=== PATIENT | male | born 1930 | race African-American/Black ===

== ENCOUNTER 2018-11-14 19:55 | Inpatient (IN) | payer MEDICARE, MEDICAID ==
[~2018-11-14] VITALS: Ht 167.6 cm; Wt 71.7 kg
[2018-11-14 19:30] VITALS: BP 122/76
[~2018-11-14 19:55] MED LIST: ACET-2178 MT; AMLO5TAB88 PO; ASPI-1393 PO; ATOR20TA PO; BRIM5DRO6 EACHEYE; CLOP75TA33; COR3 PO; FINA5TAB11 PO; GABA-531 PO; HYDR-4001 PO; LATA2.5D2 EACHEYE; LIDO700A30 TP; LOSA100T32 PO; MEMA21CA; RIVA20TA MT; SIMV40TA5; VALS160T28
[2018-11-14 20:00] VITALS: BP_SYST 118; BP_SYST 122; BP_DIAS 76; BP_DIAS 82
[2018-11-14] MEDS ORDERED: TRAMADOL 50MG TABLET PO PRN (21:30)
[2018-11-14] MEDS ORDERED: ACETAMINOPHEN 325MG TABLET PO PRN (21:30)
[2018-11-14] MEDS ORDERED: LEVOFLOXACIN 500MG PREMIX 100 ML IV SCH (23:00)
[2018-11-14] MEDS ORDERED: SODIUM CHLORIDE 0.9% 1,000 ML IV SCH (23:00)
[2018-11-14] MEDS ORDERED: LEVOFLOXACIN 250MG PREMIX 50 ML IV SCH (23:30)
[2018-11-15] VITALS (8 sets, daily range): BP systolic 106–154; BP diastolic 64–76
[2018-11-15 00:55] LABS: CLARITY URINE CLEAR (CLEAR); COLOR URINE YELLOW (YELLOW); KETONES URINE NEGATIVE (NEGATIVE); LEUKOCYTE ESTERASE URINE NEGATIVE (NEGATIVE); NITRITE URINE NEGATIVE (NEGATIVE); OCCULT BLOOD URINE TRACE (NEGATIVE); PH URINE 5.5 (4.5-8.0); PROTEIN URINE NEGATIVE (NEGATIVE); SPECIFIC GRAVITY URINE 1.019 (1.005-1.030); UROBILINOGEN URINE 0.2 E.U./dL (0.2-1.0)
[2018-11-15 06:36] LABS: BASOPHILS % 0.4 % (0.0-2.0); EOSINOPHILS % 3.8 % (0.0-5.0); HEMATOCRIT. 42.3 % (42.0-52.0); HEMOGLOBIN. 14.5 g/dL (14.0-18.0); LYMPHOCYTES % 49.7 % (20.0-50.0); MEAN CORPUSCULAR HEMOGLOBIN 31.8 pg (28.0-32.0); MEAN CORPUSCULAR VOLUME 92.6 fL (80.0-94.0); MEAN PLATELET VOLUME 8.1 fl (7.4-10.4); MONOCYTES % 9.9 % (2.0-8.0); NEUTROPHILS % 36.2 % (40.0-76.0); PLATELET 183 x1000/uL (130-400); RED BLOOD CELL COUNT 4.57 mill/uL (4.7-6.1); RED CELL DISTRIBUTION WIDTH 14.5 % (11.6-14.6)
[2018-11-15 06:42] LABS: CHLORIDE 117 mEq/L (98-107)
[2018-11-15] MEDS: DEXTROSE 5% WATER 1,000 ML IV SCH ×2 (08:57→22:38)
[2018-11-15] MEDS: FINASTERIDE 5MG TABLET PO SCH (10:53)
[2018-11-15] MEDS: AMLODIPINE 5MG TABLET PO SCH (10:53)
[2018-11-15] MEDS: CARVEDILOL 3.125 MG TABLET PO SCH ×2 (10:53→21:00)
[2018-11-15] MEDS: LOSARTAN POTASSIUM 100 MG TABLET PO SCH (10:53)
[2018-11-15] MEDS ORDERED: CLONIDINE 0.1MG TABLET PO PRN (13:45)
[2018-11-15] MEDS: GABAPENTIN 300MG CAPSULE PO SCH ×2 (13:57→21:05)
[2018-11-15] MEDS: RIVAROXABAN 20 MG TABLET PO SCH (16:20)
[2018-11-15 16:40] LABS: BASOPHILS % 0.3 % (0.0-2.0); EOSINOPHILS % 3.8 % (0.0-5.0); HEMATOCRIT. 45.6 % (42.0-52.0); HEMOGLOBIN. 15.6 g/dL (14.0-18.0); LYMPHOCYTES % 46.2 % (20.0-50.0); MEAN CORPUSCULAR HEMOGLOBIN 31.8 pg (28.0-32.0); MEAN CORPUSCULAR VOLUME 92.7 fL (80.0-94.0); MEAN PLATELET VOLUME 8.3 fl (7.4-10.4); MONOCYTES % 11.6 % (2.0-8.0); NEUTROPHILS % 38.1 % (40.0-76.0); PLATELET 177 x1000/uL (130-400); RED BLOOD CELL COUNT 4.91 mill/uL (4.7-6.1); RED CELL DISTRIBUTION WIDTH 14.7 % (11.6-14.6)
[2018-11-15 16:58] LABS: CHLORIDE 115 mEq/L (98-107)
[2018-11-15] MEDS: LORAZEPAM 2MG/ML CPJ IV PRN (18:27)
[2018-11-15] MEDS: ATORVASTATIN CALCIUM 20MG TABLET PO SCH (20:58)
[2018-11-15] MEDS: LEVOFLOXACIN 250MG TABLET PO SCH (20:58)
[2018-11-15] MEDS: LATANOPROST 0.005% OPHTH DROPS 2.5ML EACHEYE SCH (21:05)
[2018-11-16] VITALS (10 sets, daily range): BP systolic 126–168; BP diastolic 66–97
[2018-11-16] MEDS: LORAZEPAM 2MG/ML CPJ IV PRN ×2 (03:54→23:43)
[2018-11-16] MEDS: GABAPENTIN 300MG CAPSULE PO SCH ×3 (06:27→21:13)
[2018-11-16 06:58] LABS: CHLORIDE 113 mEq/L (98-107)
[2018-11-16 07:19] LABS: BASOPHILS % 0.3 % (0.0-2.0); EOSINOPHILS % 4.1 % (0.0-5.0); HEMATOCRIT. 44.6 % (42.0-52.0); HEMOGLOBIN. 15.3 g/dL (14.0-18.0); LYMPHOCYTES % 39.8 % (20.0-50.0); MEAN CORPUSCULAR HEMOGLOBIN 31.8 pg (28.0-32.0); MEAN CORPUSCULAR VOLUME 92.8 fL (80.0-94.0); MONOCYTES % 10.7 % (2.0-8.0); NEUTROPHILS % 45.1 % (40.0-76.0); PLATELET 179 x1000/uL (130-400); RED CELL DISTRIBUTION WIDTH 14.7 % (11.6-14.6)
[2018-11-16] MEDS: CARVEDILOL 3.125 MG TABLET PO SCH (08:53)
[2018-11-16] MEDS: LOSARTAN POTASSIUM 100 MG TABLET PO SCH (08:56)
[2018-11-16] MEDS: AMLODIPINE 5MG TABLET PO SCH ×2 (08:57→21:11)
[2018-11-16] MEDS: FINASTERIDE 5MG TABLET PO SCH (09:00)
[2018-11-16] MEDS: DEXTROSE 5% WATER 1,000 ML IV SCH (12:09)
[2018-11-16 12:24] LABS: T4 FREE 1.15 ng/dL (0.76-1.46)
[2018-11-16] MEDS ORDERED: LOSARTAN POTASSIUM 100 MG TABLET PO SCH (17:30)
[2018-11-16] MEDS ORDERED: HYDRALAZINE 20MG/ML VIAL IV PRN (17:30)
[2018-11-16] MEDS: RIVAROXABAN 20 MG TABLET PO SCH (17:36)
[2018-11-16] MEDS ORDERED: LOSARTAN POTASSIUM 50 MG TABLET PO SCH (21:00)
[2018-11-16] MEDS: ATORVASTATIN CALCIUM 20MG TABLET PO SCH (21:11)
[2018-11-16] MEDS: LEVOFLOXACIN 250MG TABLET PO SCH (21:11)
[2018-11-16] MEDS: LATANOPROST 0.005% OPHTH DROPS 2.5ML EACHEYE SCH (21:46)
[2018-11-17] VITALS (12 sets, daily range): BP systolic 100–164; BP diastolic 27–110
[2018-11-17] MEDS: DEXTROSE 5% WATER 1,000 ML IV SCH ×2 (00:18→14:52)
[2018-11-17] MEDS: IPRATROPIUM/ALBUTEROL 0.5-3(2.5)MG/3ML NEB HHN SCH ×3 (01:46→20:15)
[2018-11-17] MEDS: GABAPENTIN 300MG CAPSULE PO SCH ×3 (05:44→21:22)
[2018-11-17 06:09] LABS: BASOPHILS % 0.2 % (0.0-2.0); EOSINOPHILS % 3.4 % (0.0-5.0); HEMATOCRIT. 47.5 % (42.0-52.0); HEMOGLOBIN. 16.1 g/dL (14.0-18.0); LYMPHOCYTES % 41.1 % (20.0-50.0); MEAN CORPUSCULAR HEMOGLOBIN 31.5 pg (28.0-32.0); MEAN PLATELET VOLUME 7.6 fl (7.4-10.4); MONOCYTES % 11.7 % (2.0-8.0); NEUTROPHILS % 43.6 % (40.0-76.0); PLATELET 192 x1000/uL (130-400); RED CELL DISTRIBUTION WIDTH 14.6 % (11.6-14.6)
[2018-11-17 06:15] LABS: CHLORIDE 114 mEq/L (98-107)
[2018-11-17] MEDS: LOSARTAN POTASSIUM 50 MG TABLET PO SCH ×2 (09:05→21:00)
[2018-11-17] MEDS: FINASTERIDE 5MG TABLET PO SCH (09:05)
[2018-11-17] MEDS: AMLODIPINE 5MG TABLET PO SCH ×2 (09:06→21:00)
[2018-11-17] MEDS ORDERED: LEVOFLOXACIN 500MG PREMIX 100 ML IV SCH (10:30)
[2018-11-17] MEDS: RIVAROXABAN 20 MG TABLET PO SCH (17:38)
[2018-11-17] MEDS: CARVEDILOL 3.125 MG TABLET PO SCH (21:00)
[2018-11-17] MEDS: ATORVASTATIN CALCIUM 20MG TABLET PO SCH (21:22)
[2018-11-17] MEDS: LEVOFLOXACIN 250MG TABLET PO SCH (21:22)
[2018-11-17] MEDS: LATANOPROST 0.005% OPHTH DROPS 2.5ML EACHEYE SCH (21:22)
[2018-11-18] VITALS (12 sets, daily range): BP systolic 122–174; BP diastolic 58–94
[2018-11-18] MEDS: GABAPENTIN 300MG CAPSULE PO SCH ×3 (05:58→20:42)
[2018-11-18] MEDS: IPRATROPIUM/ALBUTEROL 0.5-3(2.5)MG/3ML NEB HHN SCH ×2 (08:13→20:39)
[2018-11-18] MEDS: CARVEDILOL 3.125 MG TABLET PO SCH ×2 (10:24→20:58)
[2018-11-18] MEDS: FINASTERIDE 5MG TABLET PO SCH (10:24)
[2018-11-18] MEDS: AMLODIPINE 5MG TABLET PO SCH ×2 (10:25→20:59)
[2018-11-18] MEDS: LOSARTAN POTASSIUM 50 MG TABLET PO SCH ×2 (10:25→20:59)
[2018-11-18] MEDS: RIVAROXABAN 20 MG TABLET PO SCH (16:09)
[2018-11-18] MEDS: LEVOFLOXACIN 250MG TABLET PO SCH (20:42)
[2018-11-18] MEDS: ATORVASTATIN CALCIUM 20MG TABLET PO SCH (20:42)
[2018-11-18] MEDS: LATANOPROST 0.005% OPHTH DROPS 2.5ML EACHEYE SCH (21:26)
== END 2018-11-18 22:37 | DRG 689 ==
LOC: 6EST 19:55 → 5EST 11-16 09:33
PROVIDERS: ADMIT Hospitalist; ATTEND Hospitalist
PROC: 4B02XSZ Measurement of Cardiac Pacemaker, External Approach (ICD-10-PCS; principal; 2018-11-16)
DX: N39.0 Urinary tract infection, site not specified (principal); G93.41 Metabolic encephalopathy; E87.0 Hyperosmolality and hypernatremia; E44.1 Mild protein-calorie malnutrition; D68.59 Other primary thrombophilia; F02.80 Dementia in other diseases classified elsewhere, unspecified severity, without behavioral disturbance, psychotic disturbance, mood disturbance, and anxiety; G30.9 Alzheimer's disease, unspecified; N40.0 Benign prostatic hyperplasia without lower urinary tract symptoms; H40.9 Unspecified glaucoma; I48.91 Unspecified atrial fibrillation; B96.20 Unspecified Escherichia coli [E. coli] as the cause of diseases classified elsewhere; I49.5 Sick sinus syndrome; E78.5 Hyperlipidemia, unspecified; I10 Essential (primary) hypertension; Z86.73 Personal history of transient ischemic attack (TIA), and cerebral infarction without residual deficits; Z95.0 Presence of cardiac pacemaker; Z68.25 Body mass index [BMI] 25.0-25.9, adult; Z79.899 Other long term (current) drug therapy; Z79.82 Long term (current) use of aspirin
CPT/HCPCS: 36415; 71045; 80048; 81003; 83735; 84132; 84439; 84443; 87077; 87186; 93005; 93306; 94640; C1893; J0360; J1956; J2060; J7030; J7070; J7620

== ENCOUNTER 2019-08-06 13:04 | Inpatient (IN) | payer MEDICARE, MEDICAID ==
[~2019-08-06] VITALS: Ht 167.6 cm; Wt 74.6 kg
[~2019-08-06 13:04] MED LIST changes: -ACET-2178 MT; -ASPI-1393 PO; +ASPI-1497 PO; +SIMV-46; -SIMV40TA5; +TOPUD MT
[2019-08-06] MEDS ORDERED: ACETAMINOPHEN 325MG TABLET PO STA (13:18)
[2019-08-06] MEDS ORDERED: CEFTRIAXONE 1 G PREMIX 50 ML IV STA (15:02)
[2019-08-06] MEDS ORDERED: AZITHROMYCIN 500 MG in DEXT 5% WATER 250 ML IV STA (15:02)
[2019-08-06] MEDS ORDERED: SODIUM CHLORIDE 0.9% 1,000 ML IV ONE (15:15)
[2019-08-06 15:19] LABS: CHLORIDE 111 mEq/L (98-107); PROTHROMBIN TIME 10.9 sec (9.6-11.0)
[2019-08-06 15:25] LABS: BASOPHILS % 0.2 % (0.0-2.0); HEMATOCRIT. 46.9 % (42.0-52.0); HEMOGLOBIN. 16.2 g/dL (14.0-18.0); LYMPHOCYTES % 40.5 % (20.0-50.0); MEAN CORPUSCULAR HEMOGLOBIN 31.6 pg (28.0-32.0); MEAN CORPUSCULAR VOLUME 91.9 fL (80.0-94.0); MEAN PLATELET VOLUME 8.8 fl (7.4-10.4); MONOCYTES % 5.6 % (2.0-8.0); NEUTROPHILS % 53.7 % (40.0-76.0); PLATELET 157 x1000/uL (130-400); RED BLOOD CELL COUNT 5.11 mill/uL (4.7-6.1); RED CELL DISTRIBUTION WIDTH 15.1 % (11.6-14.6)
[2019-08-06 15:27] LABS: CLARITY URINE CLEAR (CLEAR); COLOR URINE YELLOW (YELLOW); KETONES URINE NEGATIVE (NEGATIVE); LEUKOCYTE ESTERASE URINE 1+ (NEGATIVE); NITRITE URINE POSITIVE (NEGATIVE); OCCULT BLOOD URINE 2+ (NEGATIVE); PH URINE 5.5 (4.5-8.0); PROTEIN URINE 1+ (NEGATIVE); SPECIFIC GRAVITY URINE 1.017 (1.005-1.030)
[2019-08-06] MEDS ORDERED: CEFTRIAXONE 1 G PREMIX 50 ML IV SCH (16:45)
[2019-08-06] MEDS ORDERED: BENZONATATE 100MG CAPSULE PO PRN (16:45)
[2019-08-06] MEDS ORDERED: METOCLOPRAMIDE HCL 10MG/2ML VIAL IV PRN (16:45)
[2019-08-06] MEDS ORDERED: ASPIRIN 300MG SUPP PR ONE (19:45)
[2019-08-06] MEDS ORDERED: FUROSEMIDE 40MG/4ML VIAL IVP NR (22:00)
[2019-08-06] MEDS ORDERED: LEVOFLOXACIN 250MG PREMIX 50 ML IV SCH (22:00)
[2019-08-07 03:53] VITALS: BP 148/76
[2019-08-07 04:49] VITALS: BP 148/76
[2019-08-07 08:00] VITALS: BP 140/67
[2019-08-07] MEDS: HYDROXYCHLOROQUINE SULFATE 200MG TABLET PO SCH ×2 (09:17→21:38)
[2019-08-07] MEDS: AZITHROMYCIN 250 MG TABLET PO SCH (09:18)
[2019-08-07] MEDS: ZINC SULFATE 220 MG ( 50 ) CAPSULE PO SCH (09:18)
[2019-08-07] MEDS: THIAMINE HCL 100MG TABLET PO SCH ×2 (09:18→17:51)
[2019-08-07] MEDS: ASCORBIC ACID 500 MG TABLET PO SCH ×2 (09:18→17:51)
[2019-08-07 12:12] LABS: CHLORIDE 108 mEq/L (98-107)
[2019-08-07 12:14] LABS: BASOPHILS % 0.2 % (0.0-2.0); HEMATOCRIT. 45.5 % (42.0-52.0); HEMOGLOBIN. 15.7 g/dL (14.0-18.0); LYMPHOCYTES % 33.1 % (20.0-50.0); MEAN CORPUSCULAR HEMOGLOBIN 31.6 pg (28.0-32.0); MEAN CORPUSCULAR VOLUME 91.7 fL (80.0-94.0); MEAN PLATELET VOLUME 8.6 fl (7.4-10.4); MONOCYTES % 7.2 % (2.0-8.0); NEUTROPHILS % 59.5 % (40.0-76.0); PLATELET 150 x1000/uL (130-400); RED BLOOD CELL COUNT 4.96 mill/uL (4.7-6.1); RED CELL DISTRIBUTION WIDTH 14.4 % (11.6-14.6)
[2019-08-07 12:30] VITALS: BP 120/72
[2019-08-07] MEDS ORDERED: POTASSIUM CHLORIDE 20MEQ TABLET SR PO SCH (13:30)
[2019-08-07] MEDS: ACETAMINOPHEN 325MG TABLET PO PRN (14:43)
[2019-08-07 16:00] VITALS: BP 128/69
[2019-08-07] MEDS ORDERED: LEVOFLOXACIN 250MG PREMIX 50 ML IV SCH ×2 (19:00→22:00)
[2019-08-07] MEDS: FAMOTIDINE 20MG TABLET PO SCH (21:38)
[2019-08-08] VITALS: BP 141/79
[2019-08-08 08:00] VITALS: BP 129/79
[2019-08-08] MEDS: AZITHROMYCIN 250 MG TABLET PO SCH (10:27)
[2019-08-08] MEDS: ASCORBIC ACID 500 MG TABLET PO SCH ×2 (10:27→17:21)
[2019-08-08] MEDS: ZINC SULFATE 220 MG ( 50 ) CAPSULE PO SCH (10:27)
[2019-08-08] MEDS: THIAMINE HCL 100MG TABLET PO SCH ×2 (10:27→17:21)
[2019-08-08] MEDS: HYDROXYCHLOROQUINE SULFATE 200MG TABLET PO SCH ×2 (10:28→21:15)
[2019-08-08 12:00] VITALS: BP 129/64
[2019-08-08 16:00] VITALS: BP 116/58
[2019-08-08] MEDS ORDERED: FUROSEMIDE 20MG/2ML VIAL IVP NR (17:15)
[2019-08-08] MEDS: AMPICILLIN SOD/SULBACTAM NA 3 G in SODIUM CHLORIDE 0.9% 100 ML IV SCH ×2 (17:21→23:09)
[2019-08-08 20:00] VITALS: BP 125/74
[2019-08-08] MEDS: FAMOTIDINE 20MG TABLET PO SCH (21:15)
[2019-08-09] VITALS: BP 126/60
[2019-08-09 04:00] VITALS: BP 119/68
[2019-08-09] MEDS: AMPICILLIN SOD/SULBACTAM NA 3 G in SODIUM CHLORIDE 0.9% 100 ML IV SCH ×4 (05:00→23:00)
[2019-08-09] MEDS: ASCORBIC ACID 500 MG TABLET PO SCH ×2 (09:39→17:53)
[2019-08-09] MEDS: ZINC SULFATE 220 MG ( 50 ) CAPSULE PO SCH (09:39)
[2019-08-09] MEDS: HYDROXYCHLOROQUINE SULFATE 200MG TABLET PO SCH ×2 (09:40→21:52)
[2019-08-09] MEDS: THIAMINE HCL 100MG TABLET PO SCH ×2 (09:40→17:53)
[2019-08-09] MEDS: AZITHROMYCIN 250 MG TABLET PO SCH (09:40)
[2019-08-09 12:00] VITALS: BP 106/74
[2019-08-09 16:00] VITALS: BP 130/75
[2019-08-09 20:00] VITALS: BP 127/69
[2019-08-09] MEDS: FAMOTIDINE 20MG TABLET PO SCH (21:52)
[2019-08-09] MEDS: ACETAMINOPHEN 325MG TABLET PO PRN (21:53)
[2019-08-10] VITALS: BP 131/71
[2019-08-10 04:00] VITALS: BP 121/78
[2019-08-10] MEDS: AMPICILLIN SOD/SULBACTAM NA 3 G in SODIUM CHLORIDE 0.9% 100 ML IV SCH ×3 (05:00→17:31)
[2019-08-10 08:00] VITALS: BP 154/79
[2019-08-10] MEDS: AZITHROMYCIN 250 MG TABLET PO SCH (09:59)
[2019-08-10] MEDS: THIAMINE HCL 100MG TABLET PO SCH ×2 (09:59→17:33)
[2019-08-10] MEDS: ASCORBIC ACID 500 MG TABLET PO SCH ×2 (09:59→17:33)
[2019-08-10] MEDS: ZINC SULFATE 220 MG ( 50 ) CAPSULE PO SCH (09:59)
[2019-08-10] MEDS: HYDROXYCHLOROQUINE SULFATE 200MG TABLET PO SCH ×2 (09:59→20:43)
[2019-08-10 12:14] VITALS: BP 155/71
[2019-08-10 16:12] VITALS: BP 142/68
[2019-08-10] MEDS: ACETAMINOPHEN 325MG TABLET PO PRN (17:34)
[2019-08-10 20:00] VITALS: BP_SYST 129; BP_DIAS 59; BP_DIAS 64
[2019-08-10] MEDS: FAMOTIDINE 20MG TABLET PO SCH (20:43)
[2019-08-11] VITALS: BP 120/63
[2019-08-11] MEDS: AMPICILLIN SOD/SULBACTAM NA 3 G in SODIUM CHLORIDE 0.9% 100 ML IV SCH ×5 (00:48→23:14)
[2019-08-11 04:00] VITALS: BP 114/59
[2019-08-11] MEDS: THIAMINE HCL 100MG TABLET PO SCH ×2 (09:21→16:11)
[2019-08-11] MEDS: HYDROXYCHLOROQUINE SULFATE 200MG TABLET PO SCH (09:21)
[2019-08-11] MEDS: ASCORBIC ACID 500 MG TABLET PO SCH ×2 (09:21→16:11)
[2019-08-11] MEDS: ZINC SULFATE 220 MG ( 50 ) CAPSULE PO SCH (09:22)
[2019-08-11 11:25] LABS: HEMATOCRIT. 51.2 % (42.0-52.0); HEMOGLOBIN. 17.5 g/dL (14.0-18.0); MEAN CORPUSCULAR HEMOGLOBIN 31.4 pg (28.0-32.0); MEAN CORPUSCULAR VOLUME 91.9 fL (80.0-94.0); MEAN PLATELET VOLUME 8.6 fl (7.4-10.4); PLATELET 229 x1000/uL (130-400); RED BLOOD CELL COUNT 5.57 mill/uL (4.7-6.1); RED CELL DISTRIBUTION WIDTH 14.6 % (11.6-14.6)
[2019-08-11 11:32] LABS: CHLORIDE 117 mEq/L (98-107)
[2019-08-11] MEDS ORDERED: POTASSIUM CHLORIDE 20MEQ TABLET SR PO NR (11:45)
[2019-08-11 12:00] VITALS: BP 158/81
[2019-08-11 12:19] LABS: ATYPICAL LYMPHOCYTES 1
[2019-08-11 12:20] LABS: PLATELET ESTIMATE NORMAL
[2019-08-11 16:00] VITALS: BP 164/86
[2019-08-11] MEDS ORDERED: CLONIDINE 0.1MG TABLET PO PRN (18:45)
[2019-08-11 20:00] VITALS: BP 143/91
[2019-08-11] MEDS: FAMOTIDINE 20MG TABLET PO SCH (21:00)
[2019-08-12] VITALS: BP 135/72
[2019-08-12] MEDS: AMPICILLIN SOD/SULBACTAM NA 3 G in SODIUM CHLORIDE 0.9% 100 ML IV SCH ×3 (05:53→17:07)
[2019-08-12 08:00] VITALS: BP 159/87
[2019-08-12] MEDS: ZINC SULFATE 220 MG ( 50 ) CAPSULE PO SCH (09:10)
[2019-08-12] MEDS: ASCORBIC ACID 500 MG TABLET PO SCH ×2 (09:10→17:07)
[2019-08-12] MEDS: THIAMINE HCL 100MG TABLET PO SCH ×2 (09:10→17:07)
[2019-08-12 12:00] VITALS: BP 150/87
[2019-08-12] MEDS: ACETAMINOPHEN 325MG TABLET PO PRN (14:14)
[2019-08-12 16:00] VITALS: BP 130/78
[2019-08-12] MEDS: FAMOTIDINE 20MG TABLET PO SCH (20:26)
[2019-08-12 20:55] VITALS: BP 144/72
[2019-08-13] MEDS: AMPICILLIN SOD/SULBACTAM NA 3 G in SODIUM CHLORIDE 0.9% 100 ML IV SCH ×4 (00:15→16:47)
[2019-08-13 00:32] VITALS: BP 139/75
[2019-08-13 04:00] VITALS: BP 131/66
[2019-08-13 08:00] VITALS: BP 150/72
[2019-08-13] MEDS: ZINC SULFATE 220 MG ( 50 ) CAPSULE PO SCH (08:22)
[2019-08-13] MEDS: ASPIRIN 81MG TABLET PO SCH (08:22)
[2019-08-13] MEDS: ASCORBIC ACID 500 MG TABLET PO SCH ×2 (08:22→16:39)
[2019-08-13] MEDS: THIAMINE HCL 100MG TABLET PO SCH ×2 (08:22→16:38)
[2019-08-13] MEDS: ACETAMINOPHEN 325MG TABLET PO PRN ×2 (09:00→14:47)
[2019-08-13 10:34] LABS: BG BASE EXCESS -0.4 mmol/L (-2.0-2.0); BG CARBOXYHEMOGLOBIN 0.3 % (0.5-1.5); BG DEOXYHEMOGLOBIN 13.3 % (0.0-5.0); BG HCO3 ACT 21.4 mmol/L (22.0-26.0); BG METHEMOGLOBIN 0.1 % (0.0-1.5); BG OXYGEN SATURATION 86.6 % (92.0-98.5); BG OXYHEMOGLOBIN 86.3 % (94.0-97.0); BG PCO2 28.5 mmHg (35.0-45.0); BG PH 7.493 (7.350-7.450); BG PO2 49.5 mmHg (75.0-100.0); BG SAMPLE SITE RIGHT RADIAL; BG TOTAL HEMOGLOBIN 16.7 g/dL (12.0-18.0); BG VENT MODE MASK - NRB
[2019-08-13 12:00] VITALS: BP 129/65
[2019-08-13] MEDS ORDERED: FUROSEMIDE 40MG/4ML VIAL IVP SCH (12:00)
[2019-08-13] MEDS: ALBUTEROL 6.7GM HFA INHALER ORI SCH ×2 (12:00→16:40)
[2019-08-13 16:00] VITALS: BP 139/75
[2019-08-13 20:00] VITALS: BP 135/68
[2019-08-13] MEDS: FAMOTIDINE 20MG TABLET PO SCH (20:36)
[2019-08-14] VITALS: BP 130/70
[2019-08-14 04:00] VITALS: BP 156/70
[2019-08-14 06:09] LABS: HEMATOCRIT. 51.5 % (42.0-52.0); HEMOGLOBIN. 17.3 g/dL (14.0-18.0); MEAN CORPUSCULAR HEMOGLOBIN 31.1 pg (28.0-32.0); MEAN CORPUSCULAR VOLUME 92.5 fL (80.0-94.0); MEAN PLATELET VOLUME 9.1 fl (7.4-10.4); PLATELET 237 x1000/uL (130-400); RED BLOOD CELL COUNT 5.57 mill/uL (4.7-6.1)
[2019-08-14 06:14] LABS: CHLORIDE 125 mEq/L (98-107)
[2019-08-14 06:25] LABS: CREATINE KINASE MB FRACTION < 1.0 ng/mL (0.5-3.6)
[2019-08-14] MEDS: ALBUTEROL 6.7GM HFA INHALER ORI SCH ×4 (06:42→17:54)
[2019-08-14] MEDS: ACETAMINOPHEN 325MG TABLET PO PRN (07:01)
[2019-08-14 08:00] VITALS: BP 148/70
[2019-08-14] MEDS: ASCORBIC ACID 500 MG TABLET PO SCH ×2 (08:41→16:10)
[2019-08-14] MEDS: ASPIRIN 81MG TABLET PO SCH (08:41)
[2019-08-14] MEDS: ZINC SULFATE 220 MG ( 50 ) CAPSULE PO SCH (08:41)
[2019-08-14] MEDS: THIAMINE HCL 100MG TABLET PO SCH ×2 (08:41→16:10)
[2019-08-14 11:21] LABS: PLATELET ESTIMATE NORMAL
[2019-08-14 12:02] VITALS: BP 118/68
[2019-08-14 16:00] VITALS: BP 133/79
[2019-08-14] MEDS: METHYLPREDNISOLONE SOD SUCC 40 MG/ML VIAL IV SCH (16:10)
[2019-08-14] MEDS: DEXTROSE 5% WATER 1,000 ML IV SCH (17:54)
[2019-08-14 20:00] VITALS: BP 155/83
[2019-08-14] MEDS: FAMOTIDINE 20MG TABLET PO SCH (21:40)
[2019-08-15] VITALS: BP 138/90
[2019-08-15] MEDS: ALBUTEROL 6.7GM HFA INHALER ORI SCH ×5 (00:02→23:18)
[2019-08-15 04:00] VITALS: BP 143/89
[2019-08-15 08:00] VITALS: BP 142/82
[2019-08-15 08:16] LABS: CHLORIDE 125 mEq/L (98-107)
[2019-08-15] MEDS: ASCORBIC ACID 500 MG TABLET PO SCH ×3 (08:18→17:47)
[2019-08-15] MEDS: DEXTROSE 5% WATER 1,000 ML IV SCH (08:18)
[2019-08-15] MEDS: METHYLPREDNISOLONE SOD SUCC 40 MG/ML VIAL IV SCH ×3 (08:18→17:47)
[2019-08-15] MEDS: ZINC SULFATE 220 MG ( 50 ) CAPSULE PO SCH (08:18)
[2019-08-15] MEDS: THIAMINE HCL 100MG TABLET PO SCH ×3 (08:19→17:47)
[2019-08-15] MEDS: ASPIRIN 81MG TABLET PO SCH (08:19)
[2019-08-15 12:00] VITALS: BP 132/82
[2019-08-15] MEDS: MORPHINE SULFATE 2 MG/ML CPJ (NOT FOR IM USE) IV PRN (14:15)
[2019-08-15 16:00] VITALS: BP 146/87
[2019-08-15] MEDS: LORAZEPAM 2MG/ML CPJ IV PRN (18:27)
[2019-08-15] MEDS ORDERED: LORAZEPAM 2MG/ML CPJ IM NR (18:42)
[2019-08-15 20:00] VITALS: BP 117/85
[2019-08-15] MEDS: FAMOTIDINE 20MG TABLET PO SCH (21:57)
[2019-08-16] VITALS: BP_SYST 117; BP_SYST 127; BP_DIAS 70; BP_DIAS 85
[2019-08-16 04:00] VITALS: BP 127/79
[2019-08-16] MEDS: ALBUTEROL 6.7GM HFA INHALER ORI SCH ×3 (05:46→18:03)
[2019-08-16] MEDS: DEXTROSE 5% WATER 1,000 ML IV SCH (05:51)
[2019-08-16 08:00] VITALS: BP 136/83
[2019-08-16] MEDS: ZINC SULFATE 220 MG ( 50 ) CAPSULE PO SCH (09:54)
[2019-08-16] MEDS: THIAMINE HCL 100MG TABLET PO SCH ×2 (09:54→16:17)
[2019-08-16] MEDS: ASPIRIN 81MG TABLET PO SCH (09:54)
[2019-08-16] MEDS: ASCORBIC ACID 500 MG TABLET PO SCH ×2 (09:54→16:17)
[2019-08-16] MEDS: LORAZEPAM 2MG/ML CPJ IV PRN (09:54)
[2019-08-16] MEDS: METHYLPREDNISOLONE SOD SUCC 40 MG/ML VIAL IV SCH ×2 (09:55→16:17)
[2019-08-16] MEDS: MORPHINE SULFATE 2 MG/ML CPJ (NOT FOR IM USE) IV PRN ×3 (10:21→22:48)
[2019-08-16 12:00] VITALS: BP 140/69
[2019-08-16 16:00] VITALS: BP 135/84
[2019-08-16 20:00] VITALS: BP 141/73
[2019-08-16] MEDS: FAMOTIDINE 20MG TABLET PO SCH (22:33)
[2019-08-17] VITALS: BP 147/82
[2019-08-17] MEDS: ALBUTEROL 6.7GM HFA INHALER ORI SCH ×2 (01:18→05:46)
[2019-08-17] MEDS: MORPHINE SULFATE 2 MG/ML CPJ (NOT FOR IM USE) IV PRN ×2 (02:55→08:51)
[2019-08-17 04:00] VITALS: BP 138/84
[2019-08-17] MEDS: LORAZEPAM 2MG/ML CPJ IV PRN (06:25)
[2019-08-17] MEDS: ASCORBIC ACID 500 MG TABLET PO SCH (08:49)
[2019-08-17] MEDS: METHYLPREDNISOLONE SOD SUCC 40 MG/ML VIAL IV SCH (08:49)
[2019-08-17] MEDS: ZINC SULFATE 220 MG ( 50 ) CAPSULE PO SCH (08:49)
[2019-08-17] MEDS: THIAMINE HCL 100MG TABLET PO SCH (08:49)
[2019-08-17] MEDS: ASPIRIN 81MG TABLET PO SCH (09:00)
[2019-08-17] MEDS ORDERED: MORPHINE SULFATE 2 MG/ML CPJ (NOT FOR IM USE) IV PRN (11:15)
[2019-08-17] MEDS: DEXTROSE 5% WATER 1,000 ML IV SCH (11:39)
[2019-08-17 11:40] VITALS: BP 140/70
== END 2019-08-17 12:30 | disposition expired | DRG 871 ==
LOC: ER 13:04 → 7EST 16:03 → EDBEDREQTM 16:06 → EDBEDREQSVC 16:06 → EDBEDREQ 16:06 → CANRESERV 08-07 02:09 → ENRESERV 08-07 02:09 → 7EST 08-10 14:11
PROVIDERS: ADMIT Internal Medicine; ATTEND Hospitalist
DX: A41.89 Other specified sepsis (principal); U07.1 COVID-19; I50.23 Acute on chronic systolic (congestive) heart failure; J12.89 Other viral pneumonia; G93.41 Metabolic encephalopathy; J96.01 Acute respiratory failure with hypoxia; E44.0 Moderate protein-calorie malnutrition; E87.2 Acidosis; J44.0 Chronic obstructive pulmonary disease with (acute) lower respiratory infection; N39.0 Urinary tract infection, site not specified; I48.92 Unspecified atrial flutter; N17.9 Acute kidney failure, unspecified; E87.0 Hyperosmolality and hypernatremia; R65.20 Severe sepsis without septic shock; E78.5 Hyperlipidemia, unspecified; E87.8 Other disorders of electrolyte and fluid balance, not elsewhere classified; F03.90 Unspecified dementia, unspecified severity, without behavioral disturbance, psychotic disturbance, mood disturbance, and anxiety; H40.9 Unspecified glaucoma; I11.0 Hypertensive heart disease with heart failure; I48.91 Unspecified atrial fibrillation; I49.5 Sick sinus syndrome; K21.9 Gastro-esophageal reflux disease without esophagitis; N40.0 Benign prostatic hyperplasia without lower urinary tract symptoms; B96.20 Unspecified Escherichia coli [E. coli] as the cause of diseases classified elsewhere; R13.10 Dysphagia, unspecified; Z66 Do not resuscitate; E86.1 Hypovolemia; Z68.26 Body mass index [BMI] 26.0-26.9, adult; Z79.899 Other long term (current) drug therapy; Z87.440 Personal history of urinary (tract) infections; Z95.0 Presence of cardiac pacemaker; Z79.82 Long term (current) use of aspirin
CPT/HCPCS: 36415; 36600; 71045; 80048; 80053; 81003; 82375; 82553; 82728; 82805; 83605; 83615; 83880; 84145; 84484; 85025; 85379; 86140; 86850; 86900; 87077; 87186; 87635; 87804; 93005; 99291; J0295; J0456; J0696; J1940; J1956; J2060; J2270; J2920; J7030; J7050; J7060; J7070